=== PATIENT | female | born 1955 | race Caucasian/White ===

== ENCOUNTER 2019-12-25 08:33 | Outpatient (CLI) | payer MEDICARE, OTHER, SELFPAY ==
--- NOTE | ~2019-12-25 | MM_ITS ---
EXAMINATION: MM screening [facility] w [facility] HISTORY: Screening TECHNIQUE: Craniocaudal and mediolateral oblique 3-D tomosynthesis images were obtained and synthetic 2-D images were generated. CAD analysis was submitted and interpreted. COMPARISON: Comparison to multiple prior studies sequentially, with oldest reviewed study dated 07/09. BREAST PARENCHYMAL COMPOSITION: There are scattered areas of fibroglandular density. FINDINGS: There is no evidence of suspicious mass, calcification, or architectural distortion to sugg est malignancy in either breast. There has been no suspicious interval change. IMPRESSION: 1. No mammographic evidence of malignancy. 2. Recommend routine screening mammography in one year. BI-RADS Category 1: Negative Reviewed, dictated and finalized at location A.
== END 2019-12-25 08:34 | disposition home or self-care (01) ==
PROVIDERS: PCP Nurse Practitioner Psychiatric/Mental Health; Visit Provider Nurse Practitioner Psychiatric/Mental Health
DX: Z12.31 Encounter for screening mammogram for malignant neoplasm of breast (principal)
CPT/HCPCS: 77063; 77067

== ENCOUNTER 2021-02-24 15:01 | Outpatient (CLI) | payer MEDICARE, OTHER, SELFPAY ==
--- NOTE | ~2021-02-24 | MM_ITS ---
EXAMINATION: MM screening [facility] BI w [facility] HISTORY: Screening TECHNIQUE: Craniocaudal and mediolateral oblique 3-D tomosynthesis images were obtained and synthetic 2-D images were generated. CAD analysis was submitted and interpreted. COMPARISON: Comparison to multiple prior studies sequentially, with oldest reviewed study dated 12/10. BREAST PARENCHYMAL COMPOSITION: There are scattered areas of fibroglandular density. FINDINGS: There is no evidence of suspicious mass, calcification, or architectural distortion to sugg est malignancy in either breast. There has been no suspicious interval change. IMPRESSION: 1. No mammographic evidence of malignancy. 2. Recommend routine screening mammography in one year. BI-RADS Category 1: Negative Reviewed, dictated and finalized at location A.
== END 2021-02-24 15:02 | disposition home or self-care (01) ==
LOC: ANHIMG 15:10
PROVIDERS: PCP Nurse Practitioner Psychiatric/Mental Health; Visit Provider Nurse Practitioner Psychiatric/Mental Health
DX: Z12.31 Encounter for screening mammogram for malignant neoplasm of breast (principal)
CPT/HCPCS: 77063; 77067

== ENCOUNTER 2022-06-01 09:29 | Outpatient (CLI) | payer MEDICARE, OTHER, SELFPAY ==
--- NOTE | ~2022-06-01 | MM_ITS ---
EXAMINATION: MM screening [facility] HISTORY: Screening mammogram, family history of breast cancer in her sister. TECHNIQUE: Craniocaudal and mediolateral oblique 3-D tomosynthesis images were obtained and synthetic 2-D images were generated. CAD analysis was submitted and interpreted. COMPARISON: 02/24/2021, 12/25/2019, 06/04/2018 BREAST PARENCHYMAL COMPOSITION: There are scattered areas of fibroglandular density. FINDINGS: No suspicious mass, calcification, or architectural distortion are identified in either elsie ast to suggest malignancy. There has been no suspicious interval change. IMPRESSION: 1. No mammographic evidence of malignancy. 2. Recommend routine screening mammography in one year. BI-RADS Category 1: Negative Reviewed, dictated and finalized at location A. TH ADVOCATE
== END 2022-06-01 09:30 | disposition home or self-care (01) ==
LOC: ANHIMG 09:31
PROVIDERS: PCP Nurse Practitioner Family; Visit Provider Nurse Practitioner Family
DX: Z12.31 Encounter for screening mammogram for malignant neoplasm of breast (principal)
CPT/HCPCS: 77063; 77067

== ENCOUNTER 2023-10-11 09:54 | Outpatient (CLI) | payer MEDICARE, OTHER, SELFPAY ==
--- NOTE | ~2023-10-11 | MM_ITS ---
EXAMINATION: MM screening [facility] HISTORY: Screening TECHNIQUE: Craniocaudal and mediolateral oblique 3-D tomosynthesis images were obtained and synthetic 2-D images were generated. CAD analysis was submitted and interpreted. COMPARISON: Comparison to multiple prior studies sequentially, with oldest reviewed study dated 05/26. BREAST PARENCHYMAL COMPOSITION: Not dense: There are scattered areas of fibroglandular density. FINDINGS: There is no evidence of suspicious mass, calcification, or architectural distortion to sugg est malignancy in either breast. There has been no suspicious interval change. IMPRESSION: 1. No mammographic evidence of malignancy. 2. Recommend routine screening mammography in one year. BI-RADS Category 1: Negative Reviewed, dictated and finalized at location B.
== END 2023-10-11 09:55 | disposition home or self-care (01) ==
PROVIDERS: PCP Nurse Practitioner Family
DX: Z12.31 Encounter for screening mammogram for malignant neoplasm of breast (principal)
CPT/HCPCS: 77063; 77067

== ENCOUNTER 2024-10-13 08:12 | Outpatient (CLI) | payer MEDICARE, OTHER, SELFPAY ==
--- NOTE | ~2024-10-13 | MM_ITS ---
EXAMINATION: MM screening dominic BI w [facility] HISTORY: Screening TECHNIQUE: Craniocaudal and mediolateral oblique 3-D tomosynthesis images were obtained and synthetic 2-D images were generated. CAD analysis was submitted and interpreted. COMPARISON: Comparison to multiple prior studies sequentially, with oldest reviewed study dated 02/05. BREAST PARENCHYMAL COMPOSITION: Not dense: There are scattered areas of fibroglandular density. FINDINGS: There is no evidence of suspicious mass, calcification, or architectural distortion to sugg est malignancy in either breast. There has been no suspicious interval change. IMPRESSION: 1. No mammographic evidence of malignancy. 2. Recommend routine screening mammography in one year. BI-RADS Category 1: Negative Reviewed, dictated and finalized at location A.
--- OUTSIDE RECORDS SUMMARY | 2024-10-13 08:21 | XMS_ITS | Continuity of Care Document ---
Author Organization [facility] Address [address] [place] [address] Phone Care Team Providers Care Packing Room Inspector Name Role Phone Unavailable Unavailable Unavailable Advance Directives Directive Yes / No Effective Date File Name No Information Encounters Encounter Description Practice Location Reason(s) For Visit Diagnoses Date Provider Providers Copied on Encounter [facility], [address], [place], [place], [id number], [place] tel:[phone] [facility]IN N[facility] No Information Family History Family Member Type Diagnosis Age At Onset No Information Payers Payer name Insurance type Covered green party ID Authoriza tion(s) No Information Social History Type Description Quantity Date Captured Comments Sex Female Smoking Status No Information Chief Complaint And Reason For Visit No Information Reason For Referral Reason For Referral No Information History Of Present Illness Encounter Date Complaint History Of Prese nt Illness No Information Functional Status Date Functional Assessmen t No Information Instructions Date Instruction Additional Infor mation No Information Assessments Type Assessment Date No Information Patient Care Teams Name Effective Dates (start - stop) Status Members No Information
--- OUTSIDE RECORDS SUMMARY | 2024-10-13 08:21 | XMS_ITS | Clinical Summary ---
Author Organization [facility] Address [address] [place] [address] Care Team Providers Care Railroad Emergency Services Manager Name Role Phone Cecilia Bird NP Primary Care Provider [phone] Jennifer Andrade CEMENT PATCHER Unavailable [phone] Allergies Active Allergy Reactions Criticality Noted Date Comments Meperidine Hallucinations Medium 06/14/2017 Medications cetirizine (ZyrTEC) 10 mg capsule Active liothyronine (CYTOMEL) 25 mcg tablet Take 1 tablet (25 mcg total) by mouth 3 (three) times a day Active aspirin 81 mg enteric coated tablet Take 1 tablet (81 mg total) by mouth daily Active vit C/E/cuperic/zin c/lutein (PRESERVISION LUTEIN ORAL) Take by mouth 2 (two) times a day Active rOPINIRole (REQUIP) 1 mg tablet 3 Active buPROPion XL (WELLBUTRIN XL) 300 mg 24 hr tablet Take 1 tablet (300 mg total) by mouth daily 3 Active fluticasone propionate (FLONASE) 50 mcg/actuation nasal sprayIndication s:Chronic cough Administer 2 sprays into each nostril daily 48 g 3 3 Active ipratropium (ATROVENT) 42 mcg (0.06 %) nasal sprayIndication s:Chronic cough Administer 2 sprays into each nostril 4 (four) times a day 45 mL 3 3 Active metFORMIN (GLUCOPHAGE) 500 mg tablet Take 1 tablet (500 mg total) by mouth 2 times daily 4 Active hydrocortisone 2.5 % cream APPLY TOPICALLY TO THE AFFECTED AREA AT BEDTIME APPLY TO FACE NEEDED FOR FLARE 3 Active ezetimibe (ZETIA) 10 mg tablet Take 1 tablet (10 mg total) by mouth daily 90 tablet 1 4 02/04/20 25 Active rosuvastatin (CRESTOR) 10 mg tablet Take 1 tablet (10 mg total) by mouth daily 90 tablet 1 4 Active Active Problems Problem Noted Date Diagnosed Date Other dysphagia 09/10/2023 Assessment & Plan (09/10/2023 3:13 PM CDT): Due to the patient having difficulty swallowing I have ordered a modified barium swallow. Osteopenia of spine 01/30/2023 HILDA (obstructive sleep apnea) 01/30/2023 Assessment & Plan (08/11/2024 2:15 PM CDT): Patient continue with oral appliance therapy. I have ordered a home sleep test to evaluate however oral appliance is treating her sleep apnea. The patient was intolerable of CPAP in the past. Assessment & Plan (12/31/2023 3:23 PM CDT): I have supplied the patient with an order for an oral appliance. The patient was informed that an oral appliance may not therapeutically treat the obstructive sleep apnea however she is unable to tolerate CPAP and is not in favor of an inspire device. I have provided the patient with a list of dentists, copy of sleep study, an order for an oral appliance. The patient is aware that she will need to complete a nocturnal polysomnogram after oral appliance made. Assessment & Plan (09/10/2023 3:13 PM CDT): The patient was encouraged to increase the use of her CPAP set at auto titrating range of 5-20 cm water pressure. The patient was explained the inspire device. The patient states she has currently not interested in having the inspire device placed. Assessment & Plan (04/10/2023 1:58 PM GROUP CONTRACT ANALYST): The patient continues to benefit from the auto titrating CPAP unit with a range of 5-20 cm water pressure. I did give her a Shipman Paykel Ramon mask to try to see if this will improve her compliance.. Her DME supplier is [employer]. She will follow-up here in 2 months. Hypersomnia 01/04/2023 Assessment & Plan (01/04/2023 2:37 PM CDT): Per the patient's request I have ordered a home sleep test. RLS (restless legs syndrome) 11/21/2022 Assessment & Plan (08/11/2024 2:14 PM CDT): Patient will continue Requip 1 mg p.o. Q bedtime. Assessment & Plan (12/31/2023 3:22 PM CDT): The patient continue to use Requip 1 mg p.o. Q bedtime. Assessment & Plan (09/10/2023 3:12 PM CDT): Patient continue to use 1 mg of Requip at 11:00 a.m. and 4:00 p.m.. The patient will use 3 mg of Requip at bedtime. Assessment & Plan (04/10/2023 1:57 PM GROUP CONTRACT ANALYST): The RLS symptoms are under control with Requip with 1 mg at 11:00 a.m., 1 mg at 4:00 p.m. and 3 mg at bedtime. She is trying to do without the for p.m. dose most days. Assessment & Plan (01/04/2023 2:37 PM CDT): Patient continue to use 1 mg of Requip at 11:00 a.m. and 4:00 p.m.. The patient will use 3 mg of Requip at bedtime. Assessment & Plan (12/20/2022 3:31 PM CDT): The gabapentin did not help the RLS symptoms. She continues to take Requip 1 mg at 11:00 p.m., 1 mg at 4:00 p.m. and 3 mg at bedtime. Assessment & Plan (11/21/2022 2:24 PM CDT): I did recommend trying to limit the total Requip dose to 4 mg per day. We will try decreasing the nighttime dose to 2 mg at bedtime and add gabapentin 300 mg at bedtime to see if this will control the legs and then allow her to use 1 mg of Requip at 11:00 a.m. and 1 mg at 4:00 p.m.. Osteoarthritis of right knee 06/05/2022 Overview (02/01/2023): Last Assessment & Plan: We discussed the risks, benefits and alternatives. The only thing proven to slow the progression of osteoarthritis is weight loss. Every pound lost relieves 4 to 6 pounds of stress across the knee. We discussed unloading braces. Formal physical therapy to help with flexibility, mobility and strength. We discussed TENS units. Nonsteroidal anti-inflammatories as well as Tylenol and pain medication and their side effects. We discussed steroid versus Visco supplement injection. We discussed eventual total knee arthroplasty. 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 01/31/2022 Nonrheumatic aortic (valve) insufficiency 2021 Coronary artery calcification seen on CAT scan 0 10/18/2021 Coronary artery disease invo lving poarch coronary artery of poarch heart 10/18/2021 Mixed hyperlipidemia 10/18/2021 Depression 08/09/2020 Pre-diabetes 11/19/2017 Overview (02/01/2023): Last Assessment & Plan: Therefore would like to avoid steroids if possible Diastolic dysfunction 08/13/2017 DALLAS (dyspnea on exertion) 06/14/2017 Essential hypertension 06/14/2017 Dyslipidemia associated with type 2 diabetes mathew litus 06/14/2017 Family history of premature CAD 06/14/2017 Allergic rhinitis 04/06/2015 Hypothyroidism 01/06/2013 Overview (02/01/2023): Last Assessment & Plan: Managed by Dr Phan in [facility]. She reports it is stable Resolved Problems Problem Noted Date Diagnosed Date Resolved Date Chronic cough 11/21/2022 08/11/2024 Assessment & Plan (12/31/2023 3:22 PM CDT): The patient is seeing Dr. Strauss next week. Assessment & Plan (09/10/2023 3:12 PM CDT): The patient continue on an allergy pill and Singulair. Assessment & Plan (04/10/2023 1:57 PM GROUP CONTRACT ANALYST): The chronic cough seems to be under control with Flonase 2 puffs in each nostril daily, Atrovent nasal spray 0.06% 2 puffs q.i.d. and Zyrtec 10 mg daily. Assessment & Plan (01/04/2023 2:36 PM CDT): The patient continue on an allergy pill and Singulair. The patient was informed that she can stop the Singulair but if the cough returns she should resume the Singulair. Assessment & Plan (12/20/2022 3:30 PM CDT): The patient has cough did improve transiently following the Z-Edison and Medrol Dosepak. I will give her 10 days of doxycycline and prednisone taper and add Atrovent nasal spray since she was intolerant of Flonase. She does have Mucinex at home that I recommended that she use b.i.d.. I will also give her prescription for an albuterol MDI. She will keep her follow-up appointment on 06 January 2023. Assessment & Plan (11/21/2022 2:24 PM CDT): The patient presents with cough with significant clear drainage. I suspect her cough may be related to postnasal drip and have recommended Flonase 2 puffs in each nostril 1 hour prior to bedtime and she is taking Zyrtec 10 mg in the morning. I will check a chest x-ray as well as full PFTs and she will follow-up here in 1 month. Nonrheumatic aortic (valve) insufficiency 01/31/2022 12/20/2022 Restless legs syndrome (RLS) 01/06/2013 08/11/2024 Overview (02/01/2023): Last Assessment & Plan: Already on max rec dose of requip. Will try adding an evening dose of gabapentin Encounters Date Type Department Care Team Description 08/11/2024 2:15 PM CDT Office Visit [facility] Pul[facility] [address] [place] [id number] Diane Grimm NP HILDA (obstructive sleep apnea) (Primary Dx); RLS (restless legs syndrome) from Last 3 Months Surgical History Surgery Date Site/Laterality Comments SECTION Medical History Medical History Date Comments Heart murmur Heart attack (HCC) Hyperlipidemia Thyroid disease Hypertension Family History Medical History Relation Name Comments Heart disease Brother Hyperlipidemia Brother Hypertension Brother Heart disease Father Hyperlipidemia Father Hypertension Father Coronary artery disease Mother Diabetes Mother Heart disease Mother Hyperlipidemia Mother Hypertension Mother Stroke Mother Breast cancer Sister Heart disease Sister Hyperlipidemia Sister Hypertension Sister Relation Name Status Comments Brother (Age 68) Father (Age 51) Mother (Age 73) Sister (Age 74) Social History Tobacco Use Types Packs/Day Years Used Date Smoking Tobacco: Former Cigarettes 1 7 1 - 1976 Smokeless Tobacco: Never Tobacco Cessation:Counseling Given: Not Answered Alcohol Use Standard Drinks/Week Comments No 0 (1 standard drink = 0.6 oz pur e alcohol) AUDIT-C Answer Date Recorded Frequency of Alcohol Consumption Not on file 11/21/2022 Q2: How many drinks containi ng alcohol do you have on a typical day when you are drinking? Patient does not drink Frequency of Binge Drinking Not on file 11/11 Comments Unknown Sex and Gender Information Value Date Recorded Sex Assigned at Not on file Legal Sex Female 9:27 AM GROUP CONTRACT ANALYST Gender Identity Not on file Sexual Orientation Not on file Obstetrics History Last Filed Vital Signs Vital Sign Reading Time Taken Comments Blood Pressure 128/72 08/11/2024 1:53 PM CDT Pulse 69 08/11/2024 1:53 PM CDT Temperature 36.4 C (97.6 F) 08/11/2024 1:53 PM CDT Respiratory Rate 18 08/11/2024 1:53 PM CDT Oxygen Saturation 98% 08/11/2024 1:53 PM CDT Inhaled Oxygen Concentration - - Weight 65.1 kg (143 lb 9.6 oz) 02/04/2024 1:07 P M CDT Height 165.1 cm (5' 5) 08/11/2024 1:53 PM CDT Body Mass Index 23.9 02/04/2024 1:07 PM CDT Plan of Treatment Health Maintenance Due Date Last Done Comments Albumin Creatinine Ratio, Urine 1953 Colon Cancer Screening-Colonoscopy 1953 Depression Screening 1953 Fall Risk Assessment 1953 Hepatitis C Screening 1955 eGFR 1953 Dilated Eye Exam 1953 Foot Exam 1953 Hepatitis B Screening 11/25/1971 Hemoglobin A1C 11/19/2012 05/22/2012 Breast Cancer Screening-Mammogram 07/09/2013 013 Well Visit 65+ 2018 Pneumococcal vaccine 65+ (2 of 2 - PCV) 04/16/2020 04/16/2019 Osteoporosis Screening-Bone Density Scan 06/21/2024 06/21/2022 Influenza Vaccine (Season Ended) 2025 03/07/2022, 03/05/2019, 01/14/2018 Lipid Panel 01/15/2025 01/16/2024, 0908/2023, 08/03/2023, Additional history exists DTaP/Tdap/Td Vaccine (2 - Td or Tdap) 01/09/2026 01/10/2016 Zoster Vaccine Completed 07/06/2022, 01/13, 02/05/2014 Procedures Procedure Name Priority Date/Time Associated Diagnosis Comments LIPID PANEL Routine 01/16/2024 Coronary artery disease involving poarch coronary artery of poarch heart without angina pectoris Mixed hyperlipidemia Nonrheumatic aortic (valve) insufficiency SCREENING MAMMOGRAM 2D BILATERAL Routine 07/09/2012 2:15 PM GROUP CONTRACT ANALYST HEMOGLOBIN A1C Routine 05/22/2012 11:45 AM GROUP CONTRACT ANALYST from Last 3 Months or Most Recently Relevant to Health Maintenance Results * Lipid panel (01/16/2024) SCRIBED Cholesterol, Total 145 l - h EXTERNAL LAB SCRIBED HDL 79 l - h EXTERNAL LAB SCRIBED LDL 56 l - h EXTERNAL LAB SCRIBED Triglycerides 48 l - h EXTERNAL LAB Blood 01/16/2024 us Rene Golden MD LAB BLOOD ORDERABLES Final Result EXTERNAL LAB * Screening Mammogram 2D Bilateral (07/09/2012 2:15 PM GROUP CONTRACT ANALYST) Anatomical Region Laterality Modality Breast Bilateral Mammography 07/09/2012 2:15 PM GROUP CONTRACT ANALYST Impressions 07/09/2012 4:04 PM GROUP CONTRACT ANALYST No mammographic evidence of malignancy. Recommend routine annual screening mammography. ASSESSMENT: BIRADS: 1 - Negative THIS IS AN ELECTRONICALLY VERIFIED REPORT 07/09/2012 4:01 PM: Annmarie Bender M.D. Annmarie Bender M.D. KL:[email or web address] 04:01 PM 04:01 PM [EOD] Narrative 07/09/2012 4:04 PM GROUP CONTRACT ANALYST EXAMINATION: BILATERAL SCREENING MAMMOGRAPHY HISTORY: Routine screening mammography. Status post mammoplasty in 1992. COMPARISON: Prior mammograms including 03/24 and 06/15/09. TECHNIQUE: Bilateral digital full field of view mammography was performed, with the aid of computer aided detection (CAD). FINDINGS: The breasts are composed of heterogeneously dense tissue, which may limit the sensitivity of mammography. No significant masses, microcalcifications, architectural distortion or skin thickening are seen. There has been no significant interval change relative to the prior studies. Procedure Note Provider, Travon, - 09/28/2020 EXAMINATION: BILATERAL SCREENING MAMMOGRAPHY HISTORY: Routine screening mammography. Status post mammoplasty [id number]. COMPARISON: Prior mammograms including 03/24 and 06/15/09. TECHNIQUE: Bilateral digital full field of view mammography wasperformed, with the aid of computer aided detection (CAD). FINDINGS: The breasts are composed of heterogeneously dense tissue, whichmay limit the sensitivity of mammography. No significant masses, microcalcifications, architectural distortion or skin thickening are seen. There has been no significant interval change relative to the priorstudies. IMPRESSION: No mammographic evidence of malignancy. Recommend routine annualscreening mammography. ASSESSMENT: BIRADS: 1 - Negative THIS IS AN ELECTRONICALLY VERIFIED REPORT 07/09/2012 4:01 PM: Annmarie Bender M.D. Annmarie Bender M.D. KL:[email or web address] 04:01 PM 04:01 PM [EOD] Barb Obando MD [facility] MAMMO PROCEDURES Final R esult * Hemoglobin A1c (05/22/2012 11:45 AM GROUP CONTRACT ANALYST) Hemoglobin A1c % 5.8 4.8 - 5.9 % 05/22/2012 12:21 PM GROUP CONTRACT ANALYST [facility] HISTORICAL RESULTS Comment: As of 2010 Method: CHRISTIAN Larry 6000 using turbidometric inhibition immunoassay procedure. Results obtained are comparable to results obtained using previous methodology (HPLC). [place] [employer] recommends that the goal of therapy should be an A1C hemoglobin of <7%. Reevaluate the treatment regimen in patients with an A1C >8%. 05/22/2012 11:4 5 AM GROUP CONTRACT ANALYST 05/22/2012 11:54 AM GROUP CONTRACT ANALYST Historical Provider LAB BLOOD ORDERABLES Dora l Result [facility] HISTORICAL RESULTS from Last 3 Months or Most Recently Relevant to Health Maintenance Insurance MEDICARE [facility] MEDICARE [facility] [place] [address] Care Teams Railroad Emergency Services Manager Relationship Specialty [place] [address] [place] [address] PCP - General Nurse Practitioner 10/18/21 [place] [address] [address], [place] [address] Family Medicine 08/13/23
--- OUTSIDE RECORDS SUMMARY | 2024-10-13 08:21 | XMS_ITS | Encounter Summary ---
Author Organization [facility] Address [address] [place] [address] Care Team Providers Care Precision Lens Grinder Name Role Phone Unavailable Primary Care Provider Unavailabl e Encounter Details Date Type Department Care Team (Late st Contact Info) Description 02/07/2023 Lab Requisition [facility] - DermPath Lab [address] [place] [id number] Tad Mercedes MD [address] [place] [address] Social History Tobacco Use Types Packs/Day Years Used Date Smoking Tobacco: Never Assessed Comments Unknown Sex and Gender Information Value Date Recorded Sex Assigned at Not on file Legal Sex Female 10:37 AM CDT Gender Identity Not on file Sexual Orientation Not on file documented as of this encounter Plan of Treatment Not on file documented as of this encounter Procedures Procedure Name Priority Date/Time Associated Diagnosis Comments DERMATOPATHOLOGY Routine 02/06/2023 3:33 AM CDT documented in this encounter Results * DERMATOPATHOLOGY (02/06/2023 3:33 AM CDT) Case Report Dermatopathology Report Case: [id number] Authorizing Provider: Tad Mercedes MD Collected: 02/06/2023 03:33 AM Ordering Location: [facility] DermPath Lab Received: 02/08/2023 06:30 AM Pathologist: Rylee Greenberg MD Specimen: Skin, rigth elbow 1:22 PM CDT DERMATOPATHOLOGY LABORATORY Final Diagnosis Specimen A. SKIN, rigth elbow: HYPERPLASTIC (HYPERTROPHIC) ACTINIC KERATOSIS; EXTENDING TO THE BASE OF THE SPECIMEN (L57.0) (see microscopic description and comment) 1:22 PM CDT DERMATOPATHOLOGY LABORATORY at 1322 CDT Clinical History SK vs. AK vs. SCCA Path# [id number] 1:22 PM CDT DERMATOPATHOLOGY LABORATORY Gross Description Specimen A: Received is one formalin filled container labeled with the patient's name and designated rigth elbow. The specimen consists of a shave biopsy measuring 6x7x3 mm. Jar 0. 3 1:22 PM CDT DERMATOPATHOLOGY LABORATORY Microscopic Description Specimen A. SKIN, rigth elbow: There is hyperkeratosis alternating with parakeratosis. There is epidermal hyperplasia with disorderly maturation of keratinocytes with nuclear pleomorphism confined to the lower half of the epidermis. This process extends to the base of the specimen. COMMENT: A squamous cell carcinoma cannot be ruled out. 3 1:22 PM CDT DERMATOPATHOLOGY LABORATORY Disclaimer An external and internal positive and negative controls are appropriate for the histochemical, immunohistochemical and immunofluorescence stain(s) in this case (if any), except where stated explicitly. The performance characteristics of the stain(s) cited in this report were developed and its performance characteristic determined by the Dermatopathology Laboratory at [facility], directed by Dr. Goldie Antony. These tests need not be, and therefore are not, approved by the [place] Food and Drug Administration. The tests are used for clinical purposes. Billing Codes Specimen Charges Stain Charges 04184 1 3 1:22 PM CDT DERMATOPATHOLOGY LABORATORY Embedded Images 3 1:22 PM CDT DERMATOPATHOLOGY LABORATORY Pathology/Cytolo gy TISSUE SPECIMEN FROM SKIN / Unknown 02/06/2023 3:33 AM CDT 02/08/2023 6:30 AM CDT us Tad Mercedes MD LAB - PATHOLOGY/CYTOLOGY ORDER WILLOW Final Result DERMATOPATHOLOGY LABORATORY [facility] - Department of Dermatology [address] [place] [address], [facility] [phone] documented in this encounter Visit Diagnoses Not on filedocumented in this encounter
--- OUTSIDE RECORDS SUMMARY | 2024-10-13 08:21 | XMS_ITS | Clinical Summary ---
Author Organization [facility] Address [address] [place] [address] Phone Care Team Providers Care Lamp Shades Supervisor Name Role Phone Unavailable Primary Care Provider Unavailabl e Social History Tobacco Use Types Packs/Day Years Used Date Smoking Tobacco: Never Assessed Comments Unknown Sex and Gender Information Value Date Recorded Sex Assigned at Not on file Legal Sex Female 11:54 AM CDT Gender Identity Not on file Sexual Orientation Not on file Plan of Treatment Health Maintenance Due Date Last Done Comments DTAP/TDAP/TD VACCINES (1 - Tdap) 1972 BREAST CANCER SCREENING 1993 COLORECTAL SCREENING 1998 Colorectal Cancer Screening 1998 FIT-DNA Q 3 years 1998 FIT/FOBT Q 1 year 1998 Flex Sig/CT Colonography Q 5 years 1998 PNEUMOCOCCAL VACCINE 50+ YEARS (1 of 1 - PCV) 11/25/19 04 ZOSTER VACCINE (1 of 2) 11/25/2003 OSTEOPOROSIS SCREENING 2018 INFLUENZA VACCINE (#1) 2023 RSV VACCINE (60+ or ) (1 - 1-dose 75+ series) 2028
--- OUTSIDE RECORDS SUMMARY | 2024-10-13 08:21 | XMS_ITS | Clinical Summary ---
Author Organization [facility] Address [address] [place] [address] Care Team Providers Care Computerized Table Cutter Name Role Phone Unavailable Primary Care Provider Unavailabl e Source Comments [facility],non-owned Affiliates and Associated Physician Practices is amultiple site organization consisting of ambulatory clinics and hospital sitesin [place], [place], [place] and [place]. This disclosure is being madepursuant to the Care Everywhere program and may not contain all information available regarding this patient. Last updated 18.[facility] [employer] Social History Tobacco Use Types Packs/Day Years Used Date Smoking Tobacco: Never Assessed Comments Unknown Sex and Gender Information Value Date Recorded Sex Assigned at Not on file Legal Sex Female 10:37 AM CDT Gender Identity Not on file Sexual Orientation Not on file Plan of Treatment Health Maintenance Due Date Last Done Comments BONE DENSITY TESTING 1953 COLOGUARD (AGES 45-75) - COL ON CA SCREENING 1953 COLON MONITORING 1953 COLONOSCOPY - COLON CA SCREENING 1953 CT COLONOGRAPHY - COLON CA SCREENING 1953 Colorectal Cancer Screening 1953 FIT - COLON CA SCREENING 1953 FLEX SIG - COLON CA SCREENING 1953 LIPID TESTING 1953 MAMMOGRAM 1953 MEDICARE AWV 12 MONTHS 1953 HEPATITIS C SCREENING 11/20/1971 DTAP/TDAP/TD VACCINES (1 - Tdap) 1972 PNEUMOCOCCAL VACCINE 50+ (1 of 1 - PCV) 11/25/2003 ZOSTER VACCINE (1 of 2) 11/25/2003 COVID-19 VACCINE (1 - 2023-2 5 season) 2024 DEPRESSION SCREENING 05/14/2024 INFLUENZA VACCINE (Season Ended) 2025 Respiratory Syncytial Virus (RSV) Vaccine Pt: or over 60 yrs (1 - 1-dose 75+ series) 2028 HEPATITIS B VACCINE Aged Out No longe r eligible based on patient's age to complete this topic HIB VACCINE Aged Out No longer eligi ble based on patient's age to complete this topic HPV VACCINE Aged Out No longer eligi ble based on patient's age to complete this topic MENINGOCOCCAL (Group B) VACC INE SHARED DECISION-MAKING Aged Out No longer eligibl e based on patient's age to complete this topic MENINGOCOCCAL GROUPS A/C/Y/W VACCINE Aged Out No longer eligible b ased on patient's age to complete this topic Insurance MEDICARE
--- OUTSIDE RECORDS SUMMARY | 2024-10-13 08:21 | XMS_ITS | Referral Summary ---
Author Organization [facility] Address [address] [place] [address] Care Team Providers Care Python Consultant Name Role Phone Cecilia Bird NP Primary Care Provider [phone] Jennifer Andrade ROENTGENOLOGIST Unavailable [phone] Encounters Date Type Department Care Team Description 08/11/2024 2:15 PM CDT Office Visit [facility] Pulmonary [address] [place] [phone] Diane Grimm NP HILDA (obstructive sleep apnea) (Primary Dx); RLS (restless legs syndrome) from Last 3 Months Allergies Active Allergy Reactions Criticality Noted Date [...] placed. Assessment & Plan (04/10/2023 1:58 PM PAINTER BARREL): The patient continues to benefit from the [...] bedtime. Assessment & Plan (04/10/2023 1:57 PM PAINTER BARREL): The RLS symptoms are under control with [...] 0 10/18/2021 Coronary artery disease invo lving napaimute coronary artery of napaimute heart 10/18/2021 Mixed hyperlipidemia 10/18/2021 Depression 08/09/2020 [...] & Plan: Managed by Dr Phan in [facility]. She reports it is stable Resolved Problems Problem Noted Date Diagnosed Date Resolved Date Chronic cough 11/21/2022 08/11/2024 Assessment & Plan (12/31/2023 3:22 PM CDT): The patient is seeing Dr. Strauss next week. Assessment & Plan (09/10/2023 3:12 PM CDT): The patient continue on an allergy pill and Singulair. Assessment & Plan (04/10/2023 1:57 PM PAINTER BARREL): The chronic cough seems to be under [...] try adding an evening dose of gabapentin Social History Tobacco Use Types Packs/Day Years Used Date Smoking Tobacco: Former Cigarettes 1 7 1 [id number] Smokeless Tobacco: Never Tobacco Cessation:Counseling Given: Not [...] on file Legal Sex Female 9:27 AM PAINTER BARREL Gender Identity Not on file Sexual Orientation Not on file Last Filed Vital Signs Vital Sign Reading [...] 02/04/2024 1:07 PM CDT Plan of Treatment Not on file Procedures Procedure Name Priority Date/Time Associated Diagnosis Comments LIPID PANEL Routine 01/16/2024 Coronary artery disease involving napaimute coronary artery of napaimute heart without angina pectoris Mixed hyperlipidemia Nonrheumatic aortic (valve) insufficiency SCREENING MAMMOGRAM 2D BILATERAL Routine 07/09/2012 2:15 PM PAINTER BARREL HEMOGLOBIN A1C Routine 05/22/2012 11:45 AM PAINTER BARREL from Last 3 Months or Most Recently Relevant to Health Maintenance Results * Lipid panel (01/16/2024) SCRIBED Cholesterol, Total 145 l - h EXTERNAL LAB SCRIBED HDL 79 l - h EXTERNAL LAB SCRIBED LDL 56 l - h EXTERNAL LAB SCRIBED Triglycerides 48 l - h EXTERNAL LAB Blood 01/16/2024 Rene Golden MD LAB BLOOD ORDERABLES Final Result EXTERNAL LAB * Screening Mammogram 2D Bilateral (07/09/2012 2:15 PM PAINTER BARREL) Anatomical Region Laterality Modality Breast Bilateral Mammography 07/09/2012 2:15 PM PAINTER BARREL Impressions 07/09/2012 4:04 PM PAINTER BARREL No mammographic evidence of malignancy. Recommend routine annual screening mammography. ASSESSMENT: BIRADS: 1 - Negative THIS IS AN ELECTRONICALLY VERIFIED REPORT 07/09/2012 4:01 PM: Annmarie Bender M.D. Annmarie Bender M.D. KL:[email or web address] 04:01 PM 04:01 PM [EOD] Narrative 07/09/2012 4:04 PM PAINTER BARREL EXAMINATION: BILATERAL SCREENING MAMMOGRAPHY HISTORY: Routine screening [...] HISTORY: Routine screening mammography. Status post mammoplasty [id number]. COMPARISON: Prior mammograms including 03/24 and 06/15/09. [...] M.D. KL:savana 04:01 PM 04:01 PM [EOD] us Barb Obando MD IMG MAMMO PROCEDURES Final R esult * Hemoglobin A1c (05/22/2012 11:45 AM PAINTER BARREL) Hemoglobin A1c % 5.8 4.8 - 5.9 % 05/22/2012 12:21 PM PAINTER BARREL [facility] HISTORICAL RESULTS Comment: As of 2010 Method: CHRISTIAN Larry 6000 using turbidometric inhibition immunoassay procedure. Results obtained are comparable to results obtained using previous methodology (HPLC). [place] [employer] recommends that the goal of therapy should be an A1C hemoglobin of <7%. Reevaluate the treatment regimen in patients with an A1C >8%. 05/22/2012 11:4 5 AM PAINTER BARREL 05/22/2012 11:54 AM PAINTER BARREL us Historical Provider LAB BLOOD ORDERABLES Dora lozano Result [facility] HISTORICAL RESULTS from Last 3 Months or Most Recently Relevant to Health Maintenance Insurance MEDICARE [facility] MEDICARE MUTUAL [facility] Care Teams Python Consultant Relationship Specialty [place] [id number] [address] PCP - General Nurse Practitioner 10/18/21 [place] [id number] Clarisa Gentile, [facility] [address] [place] [address] Family Medicine 08/13/23
--- OUTSIDE RECORDS SUMMARY | 2024-10-13 08:21 | XMS_ITS | Encounter Summary ---
Author Organization [facility] Address [address] [place] [address] Care Team Providers Care Pillow Filler Name Role Phone Unavailable Primary Care Provider Unavailabl e Encounter Details Date Type Department Care Team (Late st Contact Info) Description 03/21/2023 Lab Requisition [facility] [address] [place] [address] Morenita Allen MD [address] [place] [address] [place] [id number] Neoplasm of uncertain behavior of skin Social History Tobacco Use Types Packs/Day Years Used Date Smoking Tobacco: Never Assessed Comments Unknown Sex and Gender Information Value Date Recorded Sex Assigned at Not on file Legal Sex Female 10:37 AM CDT Gender Identity Not on file Sexual Orientation Not on file documented as of this encounter Plan of Treatment Not on file documented as of this encounter Visit Diagnoses Diagnosis Neoplasm of uncertain behavior of skin documented in this encounter
== END 2024-10-13 08:13 | disposition home or self-care (01) ==
LOC: CHSIMG 08:16
PROVIDERS: PCP Nurse Practitioner Family; Visit Provider Nurse Practitioner Family
DX: Z12.31 Encounter for screening mammogram for malignant neoplasm of breast (principal)
CPT/HCPCS: 77063; 77067